=== PATIENT | female | born 1950 | race Caucasian/White ===

== ENCOUNTER 2020-11-04 23:21 | Emergency (ER) | payer OTHER, BC ==
[~2020-11-04] VITALS: Ht 144.8 cm; Wt 64.4 kg
[2020-11-04 23:34] VITALS: BP_SYST 176
--- NOTE | 2020-11-04 23:35 | NUR ---
Patient triaged and placed in waiting room. VSS and patient appears in no acute distress at this time. Accompanied by FAMILY, awaiting available bed, and MD notified of need for MSE.
--- NOTE | 2020-11-04 23:40 | NUR ---
WALKED IN C/O ABDOMINAL PAIN SINCE YESTERDAY WHILE WALKING AROUND STORE. 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 +CONSTIPATION. SHE IS SUPPOSED TO HAVE SURGERY TO REMOVE. NO DATE SCHEDULED YET. DENIES N/V/D.
--- NOTE | 2020-11-05 00:25 | NUR ---
DR. FENG AT BEDSIDE FOR EVALUATIN.
--- NOTE | 2020-11-05 00:45 | NUR ---
Placed in room 4 . Placed on monitor technician, blood pressure machine and pulse oximeter. To gown for exam. Side rails up. Report given to MADHURI SANTOS.
[2020-11-05] MEDS ORDERED: ONDANSETRON HCL 4 MG/2 ML VIAL IVP ONE (01:00)
[2020-11-05] MEDS ORDERED: NACL 0.9% 1,000 ML IV ONE (01:00)
[2020-11-05] MEDS ORDERED: KETOROLAC TROMETHAMINE 30 MG VIAL IVP ONE (01:00)
--- NOTE | 2020-11-05 01:00 | NUR ---
# 20 gauge angiocath placed to LEFT WRIST Use of asceptic technique. Opsite placed over site. Blood return noted. Blood for lab drawn from site. Flushed with 10 cc of normal saline. No evidence of infiltration noted. Patient tolerated well.
--- NOTE | 2020-11-05 01:23 | NUR ---
PATIENT TAKEN TO CT SCAN VIA GURNEY BY RADIOLOGY STAFF.
--- NOTE | 2020-11-05 01:24 | NUR ---
Pt back from Radiology, well tolerated
[2020-11-05 01:46] LABS: ANION GAP 10 (5-15); BASOPHILS # (AUTO) 0.1 K/uL (0.0-0.2); BASOPHILS % (AUTO) 1.3 % (0.0-2.0); CALCIUM 8.9 mg/dL (8.4-11.0); CHLORIDE 104 mmol/L (98-107); CREATININE 0.84 mg/dL (0.55-1.30); EOSINOPHILS # (AUTO) 0.1 K/uL (0.0-0.4); EOSINOPHILS % (AUTO) 1.4 % (0.0-4.0); GLUCOSE 115 mg/dL (70-99); HEMATOCRIT 36.3 % (36-48); HEMOGLOBIN 12.1 g/dL (12.0-16.0); LYMPHOCYTES % (AUTO) 20.5 % (20.5-51.5); MEAN CORPUSCULAR HEMOGLOBIN 29 pg (27-31); MEAN CORPUSCULAR HGB CONC 33 % (32-36); MEAN CORPUSCULAR VOLUME 85 fL (79.0-98.0); MONOCYTES # (AUTO) 0.7 K/uL (0.0-1.0); MONOCYTES % (AUTO) 7.1 % (1.7-9.3); NEUTROPHILS # (AUTO) 6.8 K/uL (1.8-7.7); NEUTROPHILS % (AUTO) 69.7 % (40.0-70.0); PLATELET COUNT (AUTO) 220 K/uL (130-430); POTASSIUM 4.1 mmol/L (3.5-5.1); RED BLOOD CELL COUNT(AUTO) 4.25 MIL/uL (4.2-6.2); RED CELL DISTRIBUTION WIDTH 13.6 % (9.0-15.0); SODIUM SERUM 140 mmol/L (136-145); UREA NITROGEN, BLOOD 26 mg/dL (8-21); WHITE BLOOD COUNT (AUTO) 9.8 K/uL (4.8-10.8)
[2020-11-05 01:52] LABS: INR 0.9 (0.8-1.2)
[2020-11-05 02:03] LABS: ALANINE AMINOTRANSFERASE 33 U/L (12-78); ALBUMIN 3.7 g/dL (3.4-4.8); ASPARTATE AMINOTRANSFERASE 23 U/L (10-37); LIPASE 166 U/L (73-393); TOTAL BILIRUBIN 0.2 mg/dL (0.0-1.0)
--- NOTE | 2020-11-05 02:10 | NUR ---
Pt states " feeling a bit better " the IV pain med effective
--- NOTE | 2020-11-05 03:50 | NUR ---
Pt provided urine sample, sent to lab
[2020-11-05 04:17] LABS: BILIRUBIN,URINE NEGATIVE (NEGATIVE); BLOOD, URINE NEGATIVE (NEGATIVE); CLARITY/URINE CLEAR (CLEAR); GLUCOSE,URINE NEGATIVE (NEGATIVE); KETONES,URINE NEGATIVE (NEGATIVE); LEUKOCYTE ESTERASE ,URINE 1+ (NEGATIVE); NITRITE, URINE NEGATIVE (NEGATIVE); PROTEIN URINE NEGATIVE (NEGATIVE); UROBILINOGEN,URINE 0.2 (0.2-1.0)
[2020-11-05] MEDS ORDERED: FLEETMO RC (04:17)
[2020-11-05] MEDS ORDERED: BISA-79 PO (04:17)
[2020-11-05] MEDS ORDERED: SENN-169 PO (04:17)
[2020-11-05] MEDS ORDERED: POLY17PO4 PO (04:17)
[2020-11-05 04:23] LABS: COLOR,URINE STRAW (YELLOW)
--- NOTE | 2020-11-05 04:41 | NUR ---
VSS no s/s of acute distress Resting on gurney rails up
[2020-11-05 05:03] LABS: BACTERIA,URINE FEW /HPF (None Seen); RBC,URINE NONE SEEN /HPF (0-3)
[2020-11-05] MEDS ORDERED: cefTRIAXone 1 GM in D5W 50 ML IV ONE (05:15)
[2020-11-05] MEDS ORDERED: CEFI200T PO (05:18)
[2020-11-05 05:40] VITALS: BP_SYST 162
--- NOTE | 2020-11-05 05:40 | NUR ---
Patient given written and verbal discharge instructions and verbalizes understanding. ER MD discussed with patient the results and treatment provided. Patient in stable condition. ID arm band removed. IV catheter removed intact and dressing applied, no active bleeding. Rx of Dulcolax, Suprax, Mineral Oil, Miralax, and Sennosides given. Patient educated on pain management and to follow up with PMD. Pain Scale 0/10 Opportunity for questions provided and answered. Medication side effect fact sheet provided.
== END 2020-11-05 05:40 | disposition home or self-care (01) ==
LOC: SED 23:21
DX: K59.00 Constipation, unspecified (principal); R10.32 Left lower quadrant pain; C64.2 Malignant neoplasm of left kidney, except renal pelvis; I10 Essential (primary) hypertension; E10.9 Type 1 diabetes mellitus without complications
CPT/HCPCS: 36415; 74176; 76376; 80053; 81000; 83605; 83690; 85025; 85610; 87040; 87086; 96361; 96365; 96375; 99284; J1885; J2405; J7030

== ENCOUNTER 2021-02-02 13:32 | Emergency (ER) | payer OTHER, BC ==
[~2021-02-02] VITALS: Ht 154.9 cm; Wt 64.4 kg
[~2021-02-02 13:32] MED LIST: BISA-79 PO; CEFI200T PO; FLEETMO RC; POLY17PO4 PO; SENN-169 PO
[2021-02-02 13:49] VITALS: BP_SYST 186
--- NOTE | 2021-02-02 17:10 | NUR ---
DR FRANCO OUT TO TRIAGE ROOM FOR EVALUATION
== END 2021-02-02 17:30 | disposition left against medical advice (07) ==
LOC: SED 13:32
DX: Z48.00 Encounter for change or removal of nonsurgical wound dressing (principal); Z53.21 Procedure and treatment not carried out due to patient leaving prior to being seen by health care provider

== ENCOUNTER 2023-07-11 18:24 | Emergency (ER) | payer OTHER ==
[~2023-07-11] VITALS: Ht 149.9 cm; Wt 65.8 kg
[2023-07-11 18:27] VITALS: BP_SYST 163; PULSE 81; RESP 18; TEMP 98.3; O2SAT 97
[2023-07-11 19:34] LABS: BILIRUBIN,URINE NEGATIVE (NEGATIVE); BLOOD, URINE NEGATIVE (NEGATIVE); CLARITY/URINE CLEAR (CLEAR); COLOR,URINE YELLOW (YELLOW); GLUCOSE,URINE NEGATIVE (NEGATIVE); KETONES,URINE NEGATIVE (NEGATIVE); LEUKOCYTE ESTERASE ,URINE TRACE (NEGATIVE); NITRITE, URINE NEGATIVE (NEGATIVE); PROTEIN URINE 1+ (NEGATIVE); UROBILINOGEN,URINE 0.2 (0.2-1.0)
[2023-07-11 19:57] LABS: BACTERIA,URINE RARE /HPF (None Seen); MUCUS,URINE None Seen /LPF (None Seen); RBC,URINE 0-3 /HPF (0-3)
[2023-07-11 23:43] LABS: BASOPHILS # (AUTO) 0.1 K/uL (0.0-0.2); BASOPHILS % (AUTO) 0.7 % (0.0-2.0); EOSINOPHILS # (AUTO) 0.2 K/uL (0.0-0.4); EOSINOPHILS % (AUTO) 2.2 % (0.0-4.0); HEMATOCRIT 33.9 % (36-48); HEMOGLOBIN 11.7 g/dL (12.0-16.0); LYMPHOCYTES # (AUTO) 2.9 K/uL (1.0-5.5); LYMPHOCYTES % (AUTO) 32.9 % (20.5-51.5); MEAN CORPUSCULAR HEMOGLOBIN 29 pg (27-31); MEAN CORPUSCULAR HGB CONC 35 % (32-36); MEAN CORPUSCULAR VOLUME 84 fL (79.0-98.0); MONOCYTES # (AUTO) 0.7 K/uL (0.0-1.0); MONOCYTES % (AUTO) 7.5 % (1.7-9.3); NEUTROPHILS # (AUTO) 4.9 K/uL (1.8-7.7); NEUTROPHILS % (AUTO) 56.7 % (40.0-70.0); PLATELET COUNT (AUTO) 203 K/uL (130-430); RED BLOOD CELL COUNT(AUTO) 4.02 MIL/uL (4.2-6.2); WHITE BLOOD COUNT (AUTO) 8.7 K/uL (4.8-10.8)
[2023-07-11] MEDS: MORPHINE 4 MG INJ. 4 MG/ML VIAL IVP ONE (23:47)
[2023-07-12 00:31] LABS: ALANINE AMINOTRANSFERASE 31 U/L (12-78); ALBUMIN 3.4 g/dL (3.4-4.8); ANION GAP 12 (5-15); ASPARTATE AMINOTRANSFERASE 17 U/L (10-37); BILIRUBIN,DIRECT < 0.1 mg/dL (0.0-0.3); CALCIUM 8.4 mg/dL (8.4-11.0); CARBON DIOXIDE 24 mmol/L (23-29); CHLORIDE 105 mmol/L (98-107); CREATININE 1.43 mg/dL (0.55-1.30); GLUCOSE 240 mg/dL (74-106); LIPASE 99 U/L (16-77); POTASSIUM 4.6 mmol/L (3.5-5.1); SODIUM SERUM 141 mmol/L (136-145); TOTAL BILIRUBIN 0.2 mg/dL (0.0-1.0); TOTAL PROTEIN, SERUM 7.5 g/dL (6.4-8.3); UREA NITROGEN, BLOOD 37 mg/dL (8-21)
[2023-07-12] MEDS ORDERED: CEPH-548 PO (03:29)
[2023-07-12 03:41] VITALS: BP_SYST 88; PULSE 53; RESP 18; TEMP 98.3; O2SAT 97
== END 2023-07-12 03:45 | disposition home or self-care (01) ==
LOC: SED 18:24
DX: K80.20 Calculus of gallbladder without cholecystitis without obstruction (principal); R82.71 Bacteriuria; E11.9 Type 2 diabetes mellitus without complications; I10 Essential (primary) hypertension; Z79.899 Other long term (current) drug therapy
CPT/HCPCS: 99285; 74176; 96374; 80076; 80048; 81001; 83690; 85025; 87086; 36415; 82948; 81000; 81015; J2270